=== PATIENT | male | born 1985 | race Caucasian/White ===

== ENCOUNTER 2017-06-15 01:12 | Emergency (ER) | payer OTHER ==
[~2017-06-15] VITALS: Ht 175.3 cm; Wt 108.9 kg
[~2017-06-15 01:12] MED LIST: BACTROBAN22 GM TP; DOXYCYCLINE 10100 MG PO; IBUPROFEN 800800 M1 PO; SULFACETAMIDE 115 M1 OPHTHALMIC; ULTRAM 50MG TAB50 MG PO
[2017-06-15 01:42] LABS: ABSOLUTE EOSINOPHILS 0.2 thou/uL (0.0-0.7); ABSOLUTE LYMPHOCYTES 3.3 thou/uL (0.8-5.3); ABSOLUTE MONOCYTES 0.8 thou/uL (0.0-1.2); ABSOLUTE NEUTROPHILS 4.5 thou/uL (1.6-8.1); BASOPHILS 0.2 %; EOSINOPHILS 1.7 %; HEMATOCRIT 45.6 % (42.0-52.0); HEMOGLOBIN 15.7 gm/dL (14.0-18.0); LYMPHOCYTES 37.5 %; MCH 29.8 pg (26.0-34.0); MCHC 34.6 g/dL (28.0-37.0); MCV 86.2 fL (80.0-100.0); MONOCYTES 9.4 %; MPV 8.9 fl. (7.2-11.1); NUCLEATED RBCS 0 /100WBC; PLATELET COUNT* 275 thou/uL (150-400); POLYS 51.2 %; RBC 5.29 mil/uL (4.50-6.00); RDW-CV 12.7 % (10.5-14.5); WBC 8.9 thou/uL (4.0-11.0)
[2017-06-15 01:48] LABS: ANION GAP 7 mmol/L (7-16); BUN 18 mg/dL (7-18); CALCIUM 9.4 mg/dL (8.5-10.1); CHLORIDE 105 mmol/L (98-107); CO2 29 mmol/L (21-32); CREATININE 1.2 mg/dL (0.6-1.3); GLUCOSE 105 mg/dL (70-99); SODIUM 141 mmol/L (136-145)
[2017-06-15 01:55] LABS: ALBUMIN 4.1 g/dL (3.4-5.0); ALKALINE PHOSPHATASE 95 U/L (46-116); LIPASE 198 U/L (73-393); SGOT 21 U/L (15-37); SGPT 52 U/L (30-65); TOTAL BILIRUBIN 0.3 mg/dL (<0.1-1.0); TOTAL PROTEIN 7.7 g/dL (6.4-8.2); TROPONIN-I LEVEL <0.06 ng/mL (<0.06)
[2017-06-15] MEDS ORDERED: CARAFATE 1 GM TA1 GM PO (02:14)
[2017-06-15] MEDS ORDERED: PRILOSEC 20 MG20 MG PO (02:14)
[2017-06-15 02:29] VITALS: BP 133/82
--- NOTE | 2017-06-15 11:41 | EKG ---
[place] [address] ELECTROCARDIOGRAM REPORT Name: LEONFATUMA Viral [id number] Admission: 06/15/17 Attend Phys: Discharge: 06/15/17 Date of : 85 Report #: [id number] THIS REPORT FOR: //name// [facility] ED Test Date: 2017-06-15 Test Time: 01:18:51 Pat Name: FATUMA QUINTERO Department: Room: Gender: M Area Supervisor: GUANACO : 1985 Requested By: Florinda Crump Order Number: [id number] Giana MD: Eduardo Pisano Measurements Intervals [place] Rate: 103 P: 68 [place]: 148 QRS: 36 QRSD: 110 T: 40 QT: 326 QTc: 427 Interpretive Statements Sinus tachycardia Baseline wander in lead(s) V6 No previous ECG available for comparison Electronically Signed On 06-15-2017 11:41:28 CDT by Eduardo Pisano [email or web address] <ELECTRONICALLY SIGNED> By: Eduardo Pisano MD, [facility] 06/15/17 1141 [id number] Eduardo Pisano MD, FACC /EPI
== END 2017-06-15 02:29 | disposition home or self-care (01) ==
LOC: M.ERS 01:12
PROVIDERS: Emergency Medicine
DX: R07.9 Chest pain, unspecified (principal)

== ENCOUNTER 2017-12-13 09:43 | Emergency (ER) | payer OTHER ==
[~2017-12-13] VITALS: Ht 175.3 cm; Wt 106.6 kg
[~2017-12-13 09:43] MED LIST changes: +CARAFATE 1 GM TA1 GM PO; +PRILOSEC 20 MG20 MG PO
[2017-12-13] MEDS ORDERED: IBUPROFEN 800800 M1 PO (10:02)
[2017-12-13] MEDS ORDERED: HYDROCODONE-AP1 EAC6 PO (10:02)
[2017-12-13 10:34] VITALS: BP 135/96
== END 2017-12-13 10:34 | disposition home or self-care (01) ==
LOC: M.ERS 09:43
DX: M72.2 Plantar fascial fibromatosis (principal)

== ENCOUNTER 2018-10-11 17:53 | Emergency (ER) | payer OTHER ==
[~2018-10-11] VITALS: Ht 175.3 cm; Wt 108.9 kg
[~2018-10-11 17:53] MED LIST changes: +HYDROCODONE-AP1 EAC6 PO
[2018-10-11 20:21] VITALS: BP 123/83
== END 2018-10-11 20:23 | disposition home or self-care (01) ==
LOC: M.ERS 17:53
DX: S52.124A Nondisplaced fracture of head of right radius, initial encounter for closed fracture (principal); Z88.8 Allergy status to other drugs, medicaments and biological substances; W18.39XA Other fall on same level, initial encounter; Y93.89 Activity, other specified; Y92.89 Other specified places as the place of occurrence of the external cause; Y99.8 Other external cause status